=== PATIENT | female | born 1945 | race Caucasian/White ===

== ENCOUNTER 2022-04-23 14:25 | Emergency (ER) | payer MEDICARE ==
[~2022-04-23] VITALS: Ht 154.9 cm; Wt 66.2 kg
[2022-04-23] MEDS ORDERED: PANTOPRAZOLE 40 MG VIAL IV ONE (15:00)
[2022-04-23] MEDS ORDERED: ONDANSETRON HCL/PF 4 MG/2 ML VIAL IVP ONE (15:00)
[2022-04-23] MEDS ORDERED: IV NS 0.9% 1,000 ML BAG IV ONE (15:00)
--- NOTE | 2022-04-23 15:07 | NUR ---
BAYLEE C/O AB PAIN STARTING THIS AFTERNOON AT [facility]
[2022-04-23] MEDS ORDERED: ONDANSETRON HCL/PF 4 MG/2 ML VIAL ONE (15:21)
[2022-04-23] MEDS ORDERED: PANTOPRAZOLE 40 MG VIAL ONE (15:21)
--- NOTE | 2022-04-23 15:28 | NUR ---
ADDENDUM: Intravenous End Time Documentation: Normal saline 1 liter (IV-WO) : start time:1528 pm ; end time: 1628 pm : IV site: [facility] [place] PIV # 20 Port # 1
[2022-04-23 15:32] LABS: BASOPHILS # (AUTO) 0.1 K/uL (0.0-0.2); BASOPHILS % (AUTO) 0.6 % (0.0-2.0); EOSINOPHILS % (AUTO) 2.5 % (0.0-6.0); HEMATOCRIT 37 % (33-45); HEMOGLOBIN 11.9 g/dL (11.5-14.8); LYMPHOCYTES # (AUTO) 0.8 K/uL (0.8-4.8); LYMPHOCYTES % (AUTO) 8.9 % (20.0-44.0); MEAN CORPUSCULAR HGB CONC 32 g/dl (31.0-36.0); MEAN CORPUSCULAR VOLUME 89 fL (82-100); MONOCYTES # (AUTO) 0.9 K/uL (0.1-1.30); MONOCYTES % (AUTO) 10.6 % (2.0-12.0); NEUTROPHILS # (AUTO) 6.9 K/uL (1.8-8.9); NEUTROPHILS % (AUTO) 77.4 % (43.0-81.0); PLATELET COUNT (AUTO) 348 K/uL (150-450); RED BLOOD CELL COUNT(AUTO) 4.16 MIL/uL (4.0-5.2); WHITE BLOOD COUNT (AUTO) 8.9 K/uL (4.3-11.0)
[2022-04-23 16:02] LABS: ALBUMIN 3.3 g/dL (3.4-5.0); BILIRUBIN,DIRECT 0.1 mg/dL (0.0-0.2); BILIRUBIN,TOTAL 0.3 mg/dL (0.2-1.0); CREATININE 1.2 mg/dL (0.6-1.3); POTASSIUM 4.4 mmol/L (3.5-5.1); TOTAL PROTEIN, SERUM 7.3 g/dL (6.4-8.2)
[2022-04-23 16:51] LABS: BILIRUBIN,URINE SMALL (NEGATIVE); COLOR,URINE YELLOW (YELLOW); LEUKOCYTE ESTERASE ,URINE NEGATIVE (NEGATIVE); NITRITE, URINE NEGATIVE (NEGATIVE); PH,URINE 5.5 (5.0-8.0); PROTEIN,URINE NEGATIVE (NEGATIVE); UGLUCOSE 250 MG/DL mg/dL (NEGATIVE); UROBILINOGEN,URINE 0.2 EU/dL (0.2)
[2022-04-23 17:03] LABS: BACTERIA,URINE RARE /HPF (None Seen); RBC,URINE 0-2 /HPF (0-2); SQUAMOUS EPITHELIAL CELL,UR 0-2 /HPF (None Seen); WBC,URINE 0-2 /HPF (0-3)
--- NOTE | 2022-04-23 17:20 | NUR ---
[facility] ETA 20 MINS.
[2022-04-23 18:11] VITALS: BP 138/82
== END 2022-04-23 18:13 ==
LOC: ER 14:28
DX: R10.12 Left upper quadrant pain (principal); R11.0 Nausea; E11.9 Type 2 diabetes mellitus without complications; Z88.5 Allergy status to narcotic agent
CPT/HCPCS: 99285; 74176; 96374; 71045; 96361; 96375; 93005; 85025; 80048; 83690; 80076; 81001; 36415; 85730; 82962; J2405; J7030; C9113